=== PATIENT | female | born 1940 | race Hispanic/Latino ===

== ENCOUNTER 2020-10-13 11:15 | Emergency (ER) | payer OTHER, SELFPAY ==
[2020-10-13 11:33] VITALS: BP 148/65; PULSE 98; RESP 16; TEMP 37.4; O2SAT 98
--- NOTE | 2020-10-13 11:49 | ED.GENADULT ---
HPI - General Adult General Chief complaint: Unspecified Stated complaint: High blood Sugar Source: patient and RN notes reviewed Mode of arrival: ambulatory Limitations: language barrier ([employer] utilized) History of Present Illness HPI narrative: 79-year-old female presents with concern for high blood sugar. She recently moved from [place]. Reports she has been taking Metformin that was prescribed to her in [place]. Reports she does not currently have a doctor in [facility]. Reports she was told in [place] her blood sugar needs to be at 100, and was concerned because it has been in the 120s to 140s. She denies any symptoms such as diaphoresis, nausea, headache, abdominal pain, vomiting, dysuria. MD complaint: High blood sugar Related Data Home Medications Medication Instructions Recorded Confirmed metformin 850 mg PO BID 10/13/20 10/13/20 Allergies Allergy/AdvReac Type Severity Reaction Status Date / Time No Known Allergies Allergy Verified 10/13/20 12:19 Review of Systems Review of Systems: CONSTITUTIONAL: Denies malaise, chills, sweats, or fever. EYES: Denies visual changes CARDIOVASCULAR: Denies chest pain, palpitations, or edema. RESPIRATORY: Denies cough or dyspnea. GASTROINTESTINAL: Denies abdominal pain, nausea, vomiting, diarrhea GENITOURINARY: Denies dysuria or hematuria. MUSCULOSKELETAL: Denies myalgia. NEUROLOGIC: Denies headache. All systems reviewed & are unremarkable except as noted in HPI and below PMFSH Comments At time of signature, agree with nursing past medical, surgical, social and family history. There is no relevant family history pertinent to the presenting complaint Exam Narrative: GENERAL: Well-appearing, well-nourished, and in no acute distress. HEAD: Normocephalic, atraumatic. EYES: PERRLA, conjunctivae clear ENT: Nares clear. Mucous membranes moist. NECK: Supple. CHEST: No respiratory distress. Speaks in full sentences. HEART: Regular rate and rhythm. SKIN: Warm, dry, no rash. NEURO: Alert and oriented x3. PSYCH: Normal mood and affect Course Course Emergency Course: Discussed with patient managing diabetes and need for follow-up with primary care provider for management of her diabetes and medication refills. Gave patient resources for following up with primary care doctor. Patient's daughter understands and will follow up with primary doctor. Patient is aware of diagnosis, understands and agrees to treatment plan. Anticipatory guidance given. Patient agrees to follow-up as directed and is aware of reasons to seek care at the emergency department. Portions of this record may have been created with voice recognition software Vital Signs Vital signs: Vital Signs Temperature 99.3 F 10/13/20 11:33 Pulse Rate 98 10/13/20 11:33 Respiratory Rate 16 10/13/20 11:33 Blood Pressure 148/65 H 10/13/20 11:33 Pulse Oximetry 98 10/13/20 11:33 Temperature 99.3 F 10/13/20 11:33 Pulse Rate 98 10/13/20 11:33 Respiratory Rate 16 10/13/20 11:33 Blood Pressure 148/65 H 10/13/20 11:33 Pulse Oximetry 98 10/13/20 11:33 Reviewed. Medical Decision Making MDM Narrative Medical decision making narrative: Exam findings and glucose show no acute concerns or changes; patient is non-toxic appearing and is in no distress. Patient is appropriate for outpatient treatment and follow-up. Vital Signs Vital Signs: Vital Signs Temperature 99.3 F 10/13/20 11:33 Pulse Rate 98 10/13/20 11:33 Respiratory Rate 16 10/13/20 11:33 Blood Pressure 148/65 H 10/13/20 11:33 Pulse Oximetry 98 10/13/20 11:33 Temperature 99.3 F 10/13/20 11:33 Pulse Rate 98 10/13/20 11:33 Respiratory Rate 16 10/13/20 11:33 Blood Pressure 148/65 H 10/13/20 11:33 Pulse Oximetry 98 10/13/20 11:33 Lab Data Labs: Lab Results 10/13/20 Range/Units 12:00 POC Capillary Glucose 139 H (65-105) mg/dl Critical Care Time Critical Care Time Critical
[2020-10-13 12:02] LABS: Glucose Point of Care 139 mg/dl (65-105)
== END 2020-10-13 12:44 | disposition home or self-care (01) ==
PROVIDERS: Emergency Provider Nurse Practitioner
DX: E11.9 Type 2 diabetes mellitus without complications (principal)
CPT/HCPCS: 82948; 99203; 99213; G0463